=== PATIENT | female | born 1955 | race Caucasian/White ===

== ENCOUNTER 2018-05-19 12:44 | Inpatient (IN) | payer OTHER ==
[~2018-05-19] VITALS: Ht 167.6 cm; Wt 53.5 kg
[2018-05-19] MEDS ORDERED: ONDANSETRON HCL/PF 4 MG/2 ML VIAL IVP PRN (17:00)
[2018-05-19] MEDS ORDERED: ACETAMINOPHEN 650 MG/SUPP.RECT RC PRN (17:00)
[2018-05-19] MEDS ORDERED: VANCOMYCIN 1 GM in IV D5W 250 ML IV ONE (17:00)
[2018-05-19] MEDS ORDERED: IPRA3AMP23 IH (17:11)
[2018-05-19] MEDS ORDERED: LACT10SO PO (17:11)
[2018-05-19] MEDS ORDERED: ONDA4TAB5 PO (17:11)
[2018-05-19] MEDS ORDERED: MIDO5TAB PO (17:11)
[2018-05-19] MEDS ORDERED: BISA10SU8 RC (17:11)
[2018-05-19] MEDS ORDERED: METH750T3 PO (17:11)
[2018-05-19] MEDS ORDERED: ENOX40DI SQ (17:11)
[2018-05-19] MEDS ORDERED: LACT-215 PO (17:11)
[2018-05-19] MEDS ORDERED: ACET650S26 PO (17:11)
[2018-05-19] MEDS ORDERED: INSU100V28 SQ (17:11)
[2018-05-19] MEDS ORDERED: GLUC1KIT IM (17:11)
[2018-05-19] MEDS ORDERED: MEGE400O4 PO (17:11)
[2018-05-19] MEDS ORDERED: BLOO-668 IN (17:11)
[2018-05-19] MEDS ORDERED: METO-295 PO (17:11)
[2018-05-19] MEDS ORDERED: ASCO500T9 PO (17:11)
[2018-05-19] MEDS ORDERED: LEVO100T9 PO (17:11)
[2018-05-19] MEDS ORDERED: ZINC220C8 PO (17:11)
[2018-05-19] MEDS ORDERED: CHOL100044 PO (17:11)
[2018-05-19] MEDS ORDERED: HYDR1LIQ PO (17:11)
[2018-05-19] MEDS ORDERED: MAGN400O6 PO (17:11)
[2018-05-19 17:33] VITALS: BP 103/69
[2018-05-19 18:01] LABS: ALBUMIN 1.6 g/dL (3.4-5.0); BILIRUBIN,DIRECT 0.2 mg/dL (0.0-0.2); BILIRUBIN,TOTAL 0.6 mg/dL (0.2-1.0); CALCIUM, SERUM 8.3 mg/dL (8.5-10.1); CREATININE 0.5 mg/dL (0.6-1.3); POTASSIUM 3.7 mmol/L (3.5-5.1)
[2018-05-19] MEDS ORDERED: FEE PK DOSING 1 MIN EA MC ONE (18:15)
[2018-05-19] MEDS: PANTOPRAZOLE 40 MG VIAL IV SCH (18:53)
[2018-05-19] MEDS: IV NS 0.9% 1,000 ML IV PRN (18:58)
[2018-05-19] MEDS ORDERED: INSULIN REGULAR, HUMAN 100 UNIT/ML 3 ML VIAL SQ PRN (19:00)
[2018-05-19] MEDS ORDERED: DEXTROSE 50%-WATER 50 ML DISP.SYRIN IV PRN ×2 (19:00→20:00)
[2018-05-19] MEDS ORDERED: BISACODYL SUPP (10 MG) 10 MG/SUPP.RECT SUPP.RECT RC PRN (19:30)
[2018-05-19] MEDS: BLOOD SUGAR DIAGNOSTIC 1 EACH STRIP VI SCH ×2 (19:57→22:40)
[2018-05-19 20:00] VITALS: BP 119/67
[2018-05-19] MEDS: VANCOMYCIN 0.75 GM in IV D5W 250 ML IV SCH (20:48)
[2018-05-19] MEDS: PIPERACILLIN /TAZOBACTAM 3.375 G in IV D5W 100 ML IV SCH (22:40)
[2018-05-19] MEDS: HYDROMORPHONE 1 MG/1 ML DISP.SYRIN IV PRN (22:41)
[2018-05-20] VITALS: BP 96/56
[2018-05-20] MEDS ORDERED: BLOOD SUGAR DIAGNOSTIC 1 EACH STRIP IN SCH
[2018-05-20] MEDS: PIPERACILLIN /TAZOBACTAM 3.375 G in IV D5W 100 ML IV SCH ×4 (02:43→21:54)
[2018-05-20 02:47] LABS: ABG BASE EXCESS 1.9 mmol/L; ABG OXYGEN SATURATION 94.5 % (92.0-98.5); ABG PCO2 48.8 mmHg (35.0-45.0); ABG PO2 82.8 mmHg (75.0-100.0); COHb 2.1 % (0.5-1.5); MetHb 0.3 % (0.0-1.5); O2Hb 92.2 % (94.0-97.0); SITE, ABG Left Radial; VENT MODE, BG CA 35%
[2018-05-20 04:00] VITALS: BP 87/57
[2018-05-20] MEDS: IV NS 0.9% 1,000 ML IV PRN (05:44)
[2018-05-20] MEDS: HYDROMORPHONE 1 MG/1 ML DISP.SYRIN IV PRN ×3 (05:45→18:21)
[2018-05-20 06:15] LABS: HEMATOCRIT 29 % (33-45); HEMOGLOBIN 8.8 g/dL (11.5-14.8); LYMPHOCYTES # (AUTO) 0.6 /CMM (0.8-4.8); LYMPHOCYTES % (AUTO) 5.9 % (20.0-44.0); MEAN CORPUSCULAR HGB CONC 31 g/dl (31.0-36.0); MEAN CORPUSCULAR VOLUME 73 fL (82-100); MONOCYTES # (AUTO) 0.3 /CMM (0.1-1.30); MONOCYTES % (AUTO) 2.4 % (2.0-12.0); NEUTROPHILS % (AUTO) 91.7 % (43.0-81.0); PLATELET COUNT (AUTO) 396 /CMM (150-450); RED BLOOD CELL COUNT(AUTO) 3.94 MIL/uL (4.0-5.2)
[2018-05-20 06:32] LABS: ALBUMIN 1.5 g/dL (3.4-5.0); BILIRUBIN,TOTAL 0.6 mg/dL (0.2-1.0); CALCIUM, SERUM 8.3 mg/dL (8.5-10.1); CREATININE 0.6 mg/dL (0.6-1.3); POTASSIUM 4.1 mmol/L (3.5-5.1); TOTAL PROTEIN, SERUM 5.8 g/dL (6.4-8.2)
[2018-05-20 08:00] VITALS: BP 92/58
[2018-05-20] MEDS ORDERED: Z GUARD REMEDY 2 OZ OINT TP PRN (08:30)
[2018-05-20] MEDS: VANCOMYCIN 0.75 GM in IV D5W 250 ML IV SCH ×2 (08:50→20:54)
[2018-05-20] MEDS: BLOOD SUGAR DIAGNOSTIC 1 EACH STRIP VI SCH ×4 (08:51→22:48)
[2018-05-20] MEDS: PANTOPRAZOLE 40 MG VIAL IV SCH (08:52)
[2018-05-20 09:31] LABS: AMYLASE 16 U/L (25-115); LIPASE 31 U/L (73-393)
[2018-05-20] MEDS ORDERED: BISACODYL SUPP (10 MG) 10 MG/SUPP.RECT SUPP.RECT RC PRN (10:00)
[2018-05-20] MEDS: Z GUARD REMEDY 2 OZ OINT TP SCH (10:58)
[2018-05-20] MEDS: DAKINS QUARTER STRENGTH (0.125%) 480 ML BOTTLE TOP SCH (10:58)
[2018-05-20 12:00] VITALS: BP 111/57
[2018-05-20 12:20] LABS: THYROID STIMULATING HORMONE 4.781 uIU/mL (0.358-3.74)
[2018-05-20 12:25] LABS: MAGNESIUM 1.3 mg/dL (1.8-2.4); PHOSPHORUS 3.9 mg/dL (2.5-4.9)
[2018-05-20 16:00] VITALS: BP 93/63
[2018-05-20] MEDS ORDERED: MGSO4/D5W 100 ML IV SCH (16:30)
[2018-05-20] MEDS ORDERED: Magnesium 1GM/D5W 100ML PREMIX PIGGYBACK IV ONE (16:30)
[2018-05-20] MEDS: IV D5/ 0.9% NACL 1,000 ML IV PRN (16:35)
[2018-05-20 20:00] VITALS: BP 93/55
[2018-05-21] MEDS: HYDROMORPHONE 1 MG/1 ML DISP.SYRIN IV PRN ×5 (02:27→23:59)
[2018-05-21] MEDS: PIPERACILLIN /TAZOBACTAM 3.375 G in IV D5W 100 ML IV SCH ×4 (02:37→22:12)
[2018-05-21 06:26] LABS: EOSINOPHILS % (AUTO) 0.2 % (0.0-6.0); HEMATOCRIT 30 % (33-45); HEMOGLOBIN 9.1 g/dL (11.5-14.8); LYMPHOCYTES # (AUTO) 0.5 /CMM (0.8-4.8); LYMPHOCYTES % (AUTO) 4.6 % (20.0-44.0); MEAN CORPUSCULAR HGB CONC 31 g/dl (31.0-36.0); MEAN CORPUSCULAR VOLUME 73 fL (82-100); MONOCYTES # (AUTO) 0.2 /CMM (0.1-1.30); MONOCYTES % (AUTO) 1.9 % (2.0-12.0); NEUTROPHILS # (AUTO) 10.6 /CMM (1.8-8.9); NEUTROPHILS % (AUTO) 93.3 % (43.0-81.0); PLATELET COUNT (AUTO) 365 /CMM (150-450); RED BLOOD CELL COUNT(AUTO) 4.08 MIL/uL (4.0-5.2); WHITE BLOOD COUNT (AUTO) 11.3 K/uL (4.3-11.0)
[2018-05-21 06:42] LABS: BILIRUBIN,TOTAL 0.4 mg/dL (0.2-1.0); CALCIUM, SERUM 7.9 mg/dL (8.5-10.1); CREATININE 0.6 mg/dL (0.6-1.3); MAGNESIUM 1.4 mg/dL (1.8-2.4); PHOSPHORUS 2.8 mg/dL (2.5-4.9); POTASSIUM 2.9 mmol/L (3.5-5.1); TOTAL PROTEIN, SERUM 5.5 g/dL (6.4-8.2)
[2018-05-21 06:44] LABS: ALBUMIN 1.4 g/dL (3.4-5.0)
[2018-05-21] MEDS: IV D5/ 0.9% NACL 1,000 ML IV PRN ×2 (06:45→23:59)
[2018-05-21 08:00] VITALS: BP 136/69
[2018-05-21] MEDS: VANCOMYCIN 0.75 GM in IV D5W 250 ML IV SCH (08:36)
[2018-05-21] MEDS: PANTOPRAZOLE 40 MG VIAL IV SCH (08:37)
[2018-05-21] MEDS: BLOOD SUGAR DIAGNOSTIC 1 EACH STRIP VI SCH ×4 (08:37→22:28)
[2018-05-21] MEDS: Z GUARD REMEDY 2 OZ OINT TP SCH (08:38)
[2018-05-21] MEDS: DAKINS QUARTER STRENGTH (0.125%) 480 ML BOTTLE TOP SCH (08:50)
[2018-05-21 09:02] LABS: BAND % (MANUAL) 15 % (0.0-5.0); LYMPHOCYTES % (MANUAL) 2 % (16-48); MONOCYTES % (MANUAL) 1 % (0-11.0); NEUTROPHILS % (MANUAL) 82 (42-76)
[2018-05-21] MEDS: Magnesium 1GM/D5W 100ML PREMIX 100 ML IV SCH ×4 (10:25→13:19)
[2018-05-21] MEDS: POTASSIUM CL. PREMIX PERIPHER. 50 ML IV SCH ×6 (11:13→16:40)
[2018-05-21] MEDS: INSULIN REGULAR, HUMAN 100 UNIT/ML 3 ML VIAL SQ PRN (11:40)
[2018-05-21 12:17] VITALS: BP 125/67
[2018-05-21 12:26] VITALS: BP 125/67
[2018-05-21] MEDS: SOD FERRIC GLUC 125 MG in IV NS 0.9% 100 ML IV SCH (15:27)
[2018-05-21 16:00] VITALS: BP 112/62
[2018-05-21] MEDS: DOCUSATE SODIUM 100 MG CAPSULE PO SCH (16:41)
[2018-05-21] MEDS ORDERED: IV NS 0.9% 500 ML IV ONE (18:00)
[2018-05-21 20:00] VITALS: BP 104/68
[2018-05-21] MEDS: VANCOMYCIN 1 GM in IV D5W 250 ML IV SCH (20:14)
[2018-05-21 21:19] VITALS: BP 104/68
[2018-05-21] MEDS: POLYETHYLENE GLYCOL 3350 17 GM POWD.PACK PO SCH (22:00)
[2018-05-21] MEDS: *INSULIN REGULAR(HUMULIN R)HUM 100 UNIT/ML VIAL SQ PRN (22:29)
[2018-05-21 22:53] LABS: BILIRUBIN,DIRECT 0.2 mg/dL (0.0-0.2)
[2018-05-22 04:00] VITALS: BP 98/50
[2018-05-22] MEDS: PIPERACILLIN /TAZOBACTAM 3.375 G in IV D5W 100 ML IV SCH ×4 (04:00→21:31)
[2018-05-22] MEDS: ALBUTEROL FS 2.5 MG/0.5 ML VIAL.NEB NEB PRN ×3 (04:01→16:37)
[2018-05-22] MEDS: IPRATROPIUM NEB FS 0.5 MG/2.5 ML AMPUL.NEB NEB PRN ×3 (04:01→16:37)
[2018-05-22] MEDS: HYDROMORPHONE 1 MG/1 ML DISP.SYRIN IV PRN ×3 (05:15→17:54)
[2018-05-22 07:16] LABS: BASOPHILS % (AUTO) 0.1 % (0.0-2.0); EOSINOPHILS % (AUTO) 0.1 % (0.0-6.0); HEMATOCRIT 28 % (33-45); HEMOGLOBIN 8.8 g/dL (11.5-14.8); LYMPHOCYTES # (AUTO) 0.2 /CMM (0.8-4.8); LYMPHOCYTES % (AUTO) 2.8 % (20.0-44.0); MEAN CORPUSCULAR HGB CONC 32 g/dl (31.0-36.0); MEAN CORPUSCULAR VOLUME 72 fL (82-100); MONOCYTES # (AUTO) 0.1 /CMM (0.1-1.30); MONOCYTES % (AUTO) 1.5 % (2.0-12.0); NEUTROPHILS # (AUTO) 8.4 /CMM (1.8-8.9); NEUTROPHILS % (AUTO) 95.5 % (43.0-81.0); PLATELET COUNT (AUTO) 332 /CMM (150-450); RED BLOOD CELL COUNT(AUTO) 3.87 MIL/uL (4.0-5.2); WHITE BLOOD COUNT (AUTO) 8.8 K/uL (4.3-11.0)
[2018-05-22 07:23] LABS: CALCIUM, SERUM 7.6 mg/dL (8.5-10.1); CREATININE 0.5 mg/dL (0.6-1.3); MAGNESIUM 1.8 mg/dL (1.8-2.4)
[2018-05-22 07:34] LABS: POTASSIUM 2.7 mmol/L (3.5-5.1)
[2018-05-22] MEDS: BLOOD SUGAR DIAGNOSTIC 1 EACH STRIP VI SCH ×4 (07:52→22:47)
[2018-05-22] MEDS: INSULIN REGULAR, HUMAN 100 UNIT/ML 3 ML VIAL SQ PRN ×3 (07:53→17:20)
[2018-05-22 08:00] VITALS: BP 103/55
[2018-05-22] MEDS: PANTOPRAZOLE 40 MG VIAL IV SCH (08:13)
[2018-05-22] MEDS: VANCOMYCIN 1 GM in IV D5W 250 ML IV SCH ×2 (08:13→20:00)
[2018-05-22] MEDS: DAKINS QUARTER STRENGTH (0.125%) 480 ML BOTTLE TOP SCH (08:14)
[2018-05-22] MEDS: Z GUARD REMEDY 2 OZ OINT TP SCH (08:15)
[2018-05-22 08:19] VITALS: BP 103/55
[2018-05-22] MEDS: DOCUSATE SODIUM 100 MG CAPSULE PO SCH ×2 (10:19→16:35)
[2018-05-22] MEDS: POTASSIUM CL. PREMIX PERIPHER. 50 ML IV SCH ×10 (10:46→21:30)
[2018-05-22] MEDS: methylPREDNISolone SOD SUCC 125 MG/2ML VIAL IV SCH ×2 (11:00→16:35)
[2018-05-22] MEDS ORDERED: JEVITY 1.2 CAL 1,000 ML BOTTLE GT PRN (15:30)
[2018-05-22 16:00] VITALS: BP_SYST 149; BP_SYST 99; BP_DIAS 63; BP_DIAS 75
[2018-05-22] MEDS: SOD FERRIC GLUC 125 MG in IV NS 0.9% 100 ML IV SCH (16:17)
[2018-05-22] MEDS: GLUCERNA 1.2 1,000 ML BOTTLE NG SCH (18:35)
[2018-05-22] MEDS: IV D5/ 0.9% NACL 1,000 ML IV PRN (19:36)
[2018-05-22 20:00] VITALS: BP 111/73
[2018-05-22] MEDS: LORAZEPAM 1 MG TABLET PO PRN (20:54)
[2018-05-22] MEDS: POLYETHYLENE GLYCOL 3350 17 GM POWD.PACK PO SCH (21:32)
[2018-05-23] VITALS (8 sets, daily range): BP systolic 87–107; BP diastolic 54–70
[2018-05-23] MEDS: HYDROMORPHONE 1 MG/1 ML DISP.SYRIN IV PRN ×4 (00:05→20:51)
[2018-05-23] MEDS: VANCOMYCIN 0.75 GM in IV D5W 250 ML IV SCH ×3 (00:05→23:47)
[2018-05-23] MEDS: PIPERACILLIN /TAZOBACTAM 3.375 G in IV D5W 100 ML IV SCH ×4 (03:26→20:46)
[2018-05-23 06:33] LABS: HEMATOCRIT 27 % (33-45); HEMOGLOBIN 8.5 g/dL (11.5-14.8); LYMPHOCYTES # (AUTO) 0.6 /CMM (0.8-4.8); LYMPHOCYTES % (AUTO) 4.9 % (20.0-44.0); MEAN CORPUSCULAR HGB CONC 32 g/dl (31.0-36.0); MEAN CORPUSCULAR VOLUME 71 fL (82-100); MONOCYTES # (AUTO) 0.2 /CMM (0.1-1.30); MONOCYTES % (AUTO) 1.4 % (2.0-12.0); NEUTROPHILS # (AUTO) 11.6 /CMM (1.8-8.9); NEUTROPHILS % (AUTO) 93.7 % (43.0-81.0); PLATELET COUNT (AUTO) 408 /CMM (150-450); RED BLOOD CELL COUNT(AUTO) 3.76 MIL/uL (4.0-5.2); WHITE BLOOD COUNT (AUTO) 12.4 K/uL (4.3-11.0)
[2018-05-23 06:46] LABS: BILIRUBIN,TOTAL 0.4 mg/dL (0.2-1.0); CALCIUM, SERUM 8.5 mg/dL (8.5-10.1); CREATININE 0.6 mg/dL (0.6-1.3); MAGNESIUM 1.7 mg/dL (1.8-2.4); PHOSPHORUS 2.1 mg/dL (2.5-4.9); POTASSIUM 3.7 mmol/L (3.5-5.1); TOTAL PROTEIN, SERUM 5.6 g/dL (6.4-8.2)
[2018-05-23 07:03] LABS: ALBUMIN 1.4 g/dL (3.4-5.0)
[2018-05-23] MEDS: PANTOPRAZOLE 40 MG VIAL IV SCH (08:04)
[2018-05-23] MEDS: methylPREDNISolone SOD SUCC 125 MG/2ML VIAL IV SCH ×2 (08:04→16:30)
[2018-05-23] MEDS: BLOOD SUGAR DIAGNOSTIC 1 EACH STRIP VI SCH ×4 (08:05→22:12)
[2018-05-23] MEDS: DOCUSATE SODIUM 100 MG CAPSULE PO SCH (08:05)
[2018-05-23] MEDS: DAKINS QUARTER STRENGTH (0.125%) 480 ML BOTTLE TOP SCH (08:06)
[2018-05-23] MEDS: Z GUARD REMEDY 2 OZ OINT TP SCH (08:06)
[2018-05-23 09:32] LABS: ABG BASE EXCESS 9.4 mmol/L; ABG OXYGEN SATURATION 93.8 % (92.0-98.5); ABG PCO2 44.3 mmHg (35.0-45.0); ABG PH 7.497 (7.350-7.450); ABG PO2 73.3 mmHg (75.0-100.0); AaDO2 305.8 mmHg; COHb 2.2 % (0.5-1.5); MetHb 0.3 % (0.0-1.5); O2Hb 91.5 % (94.0-97.0); SITE, ABG Right Brachial; VENT MODE, BG COOL AEROSOL 60%
[2018-05-23] MEDS: LORAZEPAM 1 MG TABLET PO PRN ×2 (10:05→23:45)
[2018-05-23 13:57] LABS: ABG PCO2 46.2 mmHg (35.0-45.0); ABG PH 7.478 (7.350-7.450); ABG PO2 101.1 mmHg (75.0-100.0); AaDO2 167.2 mmHg; MetHb 0.1 % (0.0-1.5); PEEP,BG 5 cm H2O; SITE, ABG Right Brachial; VT, ABG 450 mL
[2018-05-23] MEDS: Magnesium 1GM/D5W 100ML PREMIX 100 ML IV SCH ×2 (14:02→15:27)
[2018-05-23] MEDS ORDERED: NEUTRA PHOS 1 POWD.PACKET NG ONE (15:30)
[2018-05-23] MEDS: SOD FERRIC GLUC 125 MG in IV NS 0.9% 100 ML IV SCH (16:29)
[2018-05-23] MEDS: LACTOBACILLUS RHAMNOSUS GG 1 EACH CAP.SPRINK PO SCH (16:35)
[2018-05-23] MEDS: INSULIN REGULAR, HUMAN 100 UNIT/ML 3 ML VIAL SQ PRN (16:50)
[2018-05-23] MEDS: DOCUSATE SODIUM LIQ 100 MG/10 ML UDC GT SCH (16:52)
[2018-05-23] MEDS: GLUCERNA 1.2 1,000 ML BOTTLE NG SCH (17:17)
[2018-05-23] MEDS: POLYETHYLENE GLYCOL 3350 17 GM POWD.PACK PO SCH (21:22)
[2018-05-23] MEDS: *INSULIN REGULAR(HUMULIN R)HUM 100 UNIT/ML VIAL SQ PRN (22:16)
[2018-05-23] MEDS: HYDROCODONE/APAP 5/325MG 1 EACH TABLET PO PRN (23:47)
[2018-05-24] VITALS: BP 124/72
[2018-05-24] MEDS: PIPERACILLIN /TAZOBACTAM 3.375 G in IV D5W 100 ML IV SCH ×3 (03:03→16:15)
[2018-05-24] MEDS: HYDROMORPHONE 1 MG/1 ML DISP.SYRIN IV PRN ×3 (03:04→18:32)
[2018-05-24 04:00] VITALS: BP 93/57
[2018-05-24] MEDS: HYDROCODONE/APAP 5/325MG 1 EACH TABLET PO PRN ×3 (05:32→21:44)
[2018-05-24 06:42] LABS: BASOPHILS % (AUTO) 0.1 % (0.0-2.0); EOSINOPHILS % (AUTO) 0.2 % (0.0-6.0); HEMATOCRIT 22 % (33-45); HEMOGLOBIN 7.1 g/dL (11.5-14.8); LYMPHOCYTES # (AUTO) 0.5 /CMM (0.8-4.8); LYMPHOCYTES % (AUTO) 5.5 % (20.0-44.0); MEAN CORPUSCULAR HGB CONC 32 g/dl (31.0-36.0); MEAN CORPUSCULAR VOLUME 70 fL (82-100); MONOCYTES # (AUTO) 0.1 /CMM (0.1-1.30); NEUTROPHILS # (AUTO) 8.3 /CMM (1.8-8.9); NEUTROPHILS % (AUTO) 93.2 % (43.0-81.0); PLATELET COUNT (AUTO) 303 /CMM (150-450); RED BLOOD CELL COUNT(AUTO) 3.18 MIL/uL (4.0-5.2); WHITE BLOOD COUNT (AUTO) 8.9 K/uL (4.3-11.0)
[2018-05-24 06:46] LABS: CALCIUM, SERUM 8.4 mg/dL (8.5-10.1); CREATININE 0.6 mg/dL (0.6-1.3); POTASSIUM 3.3 mmol/L (3.5-5.1)
[2018-05-24] MEDS: BLOOD SUGAR DIAGNOSTIC 1 EACH STRIP VI SCH ×4 (07:50→21:17)
[2018-05-24 08:00] VITALS: BP 115/75
[2018-05-24] MEDS: methylPREDNISolone SOD SUCC 125 MG/2ML VIAL IV SCH ×2 (08:07→16:45)
[2018-05-24] MEDS: FUROSEMIDE 40 MG/4 ML VIAL IV SCH (08:07)
[2018-05-24] MEDS: LACTOBACILLUS RHAMNOSUS GG 1 EACH CAP.SPRINK PO SCH ×2 (08:07→16:45)
[2018-05-24] MEDS: PANTOPRAZOLE 40 MG VIAL IV SCH (08:07)
[2018-05-24] MEDS: Z GUARD REMEDY 2 OZ OINT TP SCH (08:08)
[2018-05-24] MEDS: DAKINS QUARTER STRENGTH (0.125%) 480 ML BOTTLE TOP SCH (08:08)
[2018-05-24] MEDS: DOCUSATE SODIUM LIQ 100 MG/10 ML UDC GT SCH ×2 (08:08→16:45)
[2018-05-24 08:51] LABS: ABG BASE EXCESS 8.7 mmol/L; ABG OXYGEN SATURATION 97.7 % (92.0-98.5); ABG PCO2 39.7 mmHg (35.0-45.0); ABG PH 7.527 (7.350-7.450); ABG PO2 121.5 mmHg (75.0-100.0); AaDO2 154.2 mmHg; COHb 1.6 % (0.5-1.5); MetHb 0.3 % (0.0-1.5); O2Hb 95.8 % (94.0-97.0); SITE, ABG Right Radial; VENT MODE, BG AC 12 450 +5 45%
[2018-05-24] MEDS ORDERED: POTASSIUM CHLORIDE 20 MEQ POWDER PACKET NG SCH (09:00)
[2018-05-24] MEDS ORDERED: ACETAMINOPHEN 650 MG/20 ML UDC- SA PATIENTS-PAIN ONLY GT PRN (10:00)
[2018-05-24] MEDS ORDERED: ACETAMINOPHEN 650 MG/20.3 ML UDC GT PRN (10:00)
[2018-05-24 12:00] VITALS: BP 93/66
[2018-05-24] MEDS: VANCOMYCIN 0.75 GM in IV D5W 250 ML IV SCH (12:41)
[2018-05-24] MEDS: LORAZEPAM 1 MG TABLET PO PRN (14:19)
[2018-05-24] MEDS: SOD FERRIC GLUC 125 MG in IV NS 0.9% 100 ML IV SCH (14:33)
[2018-05-24 16:00] VITALS: BP 102/67
[2018-05-24 16:40] LABS: HEMOGLOBIN 9.1 g/dL (11.5-14.8)
[2018-05-24] MEDS: GLUCERNA 1.2 1,000 ML BOTTLE NG SCH (16:45)
[2018-05-24 20:00] VITALS: BP 114/76
[2018-05-24] MEDS: FLUCONAZOLE (100 MG) 100 MG TABLET PO SCH (20:24)
[2018-05-24] MEDS: CEFEPIME 1 GM in IV D5W 50 ML IV SCH (20:24)
[2018-05-24] MEDS: POLYETHYLENE GLYCOL 3350 17 GM POWD.PACK PO SCH (21:17)
[2018-05-25] VITALS (7 sets, daily range): BP systolic 100–122; BP diastolic 69–75
[2018-05-25] MEDS: HYDROMORPHONE 1 MG/1 ML DISP.SYRIN IV PRN ×4 (03:19→19:58)
[2018-05-25 06:46] LABS: CALCIUM, SERUM 8.5 mg/dL (8.5-10.1); CREATININE 0.6 mg/dL (0.6-1.3); POTASSIUM 3.6 mmol/L (3.5-5.1)
[2018-05-25] MEDS: BLOOD SUGAR DIAGNOSTIC 1 EACH STRIP VI SCH ×2 (08:08→11:32)
[2018-05-25] MEDS: LACTOBACILLUS RHAMNOSUS GG 1 EACH CAP.SPRINK PO SCH ×2 (08:27→15:53)
[2018-05-25] MEDS: LORAZEPAM 1 MG TABLET PO PRN ×2 (08:27→18:32)
[2018-05-25] MEDS: DOCUSATE SODIUM LIQ 100 MG/10 ML UDC GT SCH ×2 (08:27→15:53)
[2018-05-25] MEDS: CEFEPIME 1 GM in IV D5W 50 ML IV SCH ×2 (08:28→19:58)
[2018-05-25] MEDS: PANTOPRAZOLE 40 MG VIAL IV SCH (08:28)
[2018-05-25] MEDS: methylPREDNISolone SOD SUCC 125 MG/2ML VIAL IV SCH ×2 (08:28→15:53)
[2018-05-25] MEDS: FUROSEMIDE 40 MG/4 ML VIAL IV SCH (08:28)
[2018-05-25] MEDS: Z GUARD REMEDY 2 OZ OINT TP SCH (08:28)
[2018-05-25] MEDS: DAKINS QUARTER STRENGTH (0.125%) 480 ML BOTTLE TOP SCH (08:28)
[2018-05-25] MEDS: HYDROCODONE/APAP 5/325MG 1 EACH TABLET PO PRN ×2 (08:30→15:21)
[2018-05-25 11:57] LABS: BASOPHILS % (AUTO) 0.1 % (0.0-2.0); EOSINOPHILS % (AUTO) 0.1 % (0.0-6.0); HEMATOCRIT 27 % (33-45); HEMOGLOBIN 8.3 g/dL (11.5-14.8); LYMPHOCYTES # (AUTO) 0.6 /CMM (0.8-4.8); LYMPHOCYTES % (AUTO) 4.8 % (20.0-44.0); MEAN CORPUSCULAR HGB CONC 31 g/dl (31.0-36.0); MEAN CORPUSCULAR VOLUME 72 fL (82-100); MONOCYTES # (AUTO) 0.1 /CMM (0.1-1.30); MONOCYTES % (AUTO) 1.1 % (2.0-12.0); NEUTROPHILS # (AUTO) 10.8 /CMM (1.8-8.9); NEUTROPHILS % (AUTO) 93.9 % (43.0-81.0); PLATELET COUNT (AUTO) 326 /CMM (150-450); RED BLOOD CELL COUNT(AUTO) 3.76 MIL/uL (4.0-5.2); WHITE BLOOD COUNT (AUTO) 11.5 K/uL (4.3-11.0)
[2018-05-25] MEDS ORDERED: VANCOMYCIN 0.75 GM in IV D5W 250 ML IV SCH (12:00)
[2018-05-25] MEDS: SOD FERRIC GLUC 125 MG in IV NS 0.9% 100 ML IV SCH (13:53)
[2018-05-25] MEDS ORDERED: DEXTROSE 50%-WATER 50 ML DISP.SYRIN IV PRN (16:00)
[2018-05-25] MEDS: BLOOD SUGAR DIAGNOSTIC 1 EACH STRIP IN SCH (17:55)
[2018-05-25] MEDS ORDERED: BLOOD SUGAR DIAGNOSTIC 1 EACH STRIP VI SCH (18:00)
[2018-05-25] MEDS: INSULIN REGULAR, HUMAN 100 UNIT/ML 3 ML VIAL SQ PRN (18:33)
[2018-05-25] MEDS: FLUCONAZOLE (100 MG) 100 MG TABLET PO SCH (20:33)
[2018-05-25] MEDS: POLYETHYLENE GLYCOL 3350 17 GM POWD.PACK PO SCH (21:07)
[2018-05-26] VITALS: BP 95/62
[2018-05-26] MEDS: INSULIN REGULAR, HUMAN 100 UNIT/ML 3 ML VIAL SQ PRN ×4 (00:04→23:53)
[2018-05-26] MEDS: BLOOD SUGAR DIAGNOSTIC 1 EACH STRIP IN SCH ×5 (00:04→23:52)
[2018-05-26] MEDS: GLUCERNA 1.2 1,000 ML BOTTLE NG SCH (01:56)
[2018-05-26] MEDS: HYDROMORPHONE 1 MG/1 ML DISP.SYRIN IV PRN ×5 (03:19→16:31)
[2018-05-26 04:00] VITALS: BP 133/76
[2018-05-26 07:33] LABS: CALCIUM, SERUM 8.5 mg/dL (8.5-10.1); CREATININE 0.5 mg/dL (0.6-1.3)
[2018-05-26 08:00] VITALS: BP_SYST 100; BP_SYST 117; BP_DIAS 54; BP_DIAS 61
[2018-05-26] MEDS: CEFEPIME 1 GM in IV D5W 50 ML IV SCH (08:19)
[2018-05-26] MEDS: FUROSEMIDE 40 MG/4 ML VIAL IV SCH (09:00)
[2018-05-26] MEDS: LACTOBACILLUS RHAMNOSUS GG 1 EACH CAP.SPRINK PO SCH ×2 (09:01→17:43)
[2018-05-26] MEDS: PANTOPRAZOLE 40 MG VIAL IV SCH (09:01)
[2018-05-26] MEDS: DOCUSATE SODIUM LIQ 100 MG/10 ML UDC GT SCH ×2 (09:02→17:43)
[2018-05-26] MEDS: methylPREDNISolone SOD SUCC 125 MG/2ML VIAL IV SCH ×2 (09:02→17:43)
[2018-05-26] MEDS: DAKINS QUARTER STRENGTH (0.125%) 480 ML BOTTLE TOP SCH (09:11)
[2018-05-26] MEDS: Z GUARD REMEDY 2 OZ OINT TP SCH (09:11)
[2018-05-26 12:00] VITALS: BP 101/55
[2018-05-26] MEDS ORDERED: VANCOMYCIN 1 GM in IV D5W 250 ML IV SCH (13:00)
[2018-05-26] MEDS: POTASSIUM CL. PREMIX PERIPHER. 50 ML IV SCH ×6 (13:12→20:29)
[2018-05-26] MEDS: LORAZEPAM 1 MG TABLET PO PRN (13:44)
[2018-05-26 16:00] VITALS: BP 104/67
[2018-05-26] MEDS ORDERED: IV NS 0.9% 500 ML IV ONE (16:00)
[2018-05-26] MEDS: ALBUTEROL FS 2.5 MG/0.5 ML VIAL.NEB NEB PRN (16:18)
[2018-05-26] MEDS: IPRATROPIUM NEB FS 0.5 MG/2.5 ML AMPUL.NEB NEB PRN (16:18)
[2018-05-26 20:00] VITALS: BP 100/69
[2018-05-26] MEDS: CEFEPIME 2 GM in IV D5W 100 ML IV SCH (20:09)
[2018-05-26] MEDS: POLYETHYLENE GLYCOL 3350 17 GM POWD.PACK PO SCH (21:20)
[2018-05-26] MEDS: FLUCONAZOLE (100 MG) 100 MG TABLET PO SCH (21:20)
[2018-05-26] MEDS: METOCLOPRAMIDE HCL 10 MG/2 ML VIAL IV SCH (23:45)
[2018-05-27] VITALS: BP_SYST 125; BP_SYST 97; BP_DIAS 54; BP_DIAS 57
[2018-05-27] MEDS: HYDROMORPHONE 1 MG/1 ML DISP.SYRIN IV PRN (00:17)
[2018-05-27 04:00] VITALS: BP 100/57
[2018-05-27] MEDS: BLOOD SUGAR DIAGNOSTIC 1 EACH STRIP IN SCH (05:27)
[2018-05-27] MEDS: METOCLOPRAMIDE HCL 10 MG/2 ML VIAL IV SCH (05:29)
[2018-05-27 06:27] LABS: BASOPHILS % (AUTO) 0.1 % (0.0-2.0); EOSINOPHILS % (AUTO) 0.6 % (0.0-6.0); HEMATOCRIT 29 % (33-45); HEMOGLOBIN 9.1 g/dL (11.5-14.8); LYMPHOCYTES # (AUTO) 0.8 /CMM (0.8-4.8); LYMPHOCYTES % (AUTO) 4.4 % (20.0-44.0); MEAN CORPUSCULAR HGB CONC 31 g/dl (31.0-36.0); MEAN CORPUSCULAR VOLUME 73 fL (82-100); MONOCYTES # (AUTO) 0.3 /CMM (0.1-1.30); MONOCYTES % (AUTO) 1.5 % (2.0-12.0); NEUTROPHILS % (AUTO) 93.4 % (43.0-81.0); PLATELET COUNT (AUTO) 403 /CMM (150-450); RED BLOOD CELL COUNT(AUTO) 4.03 MIL/uL (4.0-5.2); WHITE BLOOD COUNT (AUTO) 19.3 K/uL (4.3-11.0)
[2018-05-27 07:14] LABS: ABG BASE EXCESS 5.2 mmol/L; ABG OXYGEN SATURATION 98.4 % (92.0-98.5); ABG PCO2 33.3 mmHg (35.0-45.0); ABG PO2 164.4 mmHg (75.0-100.0); AaDO2 118.6 mmHg; COHb 0.9 % (0.5-1.5); MetHb 0.3 % (0.0-1.5); O2Hb 97.2 % (94.0-97.0); SITE, ABG Left Brachial; VENT MODE, BG AC 12 400 +5 45%
[2018-05-27 08:00] VITALS: BP 124/90
[2018-05-27] MEDS: CEFEPIME 2 GM in IV D5W 100 ML IV SCH (08:00)
[2018-05-27 08:09] LABS: NEUTROPHILS % (MANUAL) 80 (42-76)
[2018-05-27 08:10] LABS: BAND % (MANUAL) 12 % (0.0-5.0); LYMPHOCYTES % (MANUAL) 6 % (16-48); MONOCYTES % (MANUAL) 2 % (0-11.0)
[2018-05-27] MEDS: FUROSEMIDE 40 MG/4 ML VIAL IV SCH (09:00)
[2018-05-27] MEDS: DAKINS QUARTER STRENGTH (0.125%) 480 ML BOTTLE TOP SCH (09:00)
[2018-05-27] MEDS: methylPREDNISolone SOD SUCC 125 MG/2ML VIAL IV SCH (09:00)
[2018-05-27] MEDS: LACTOBACILLUS RHAMNOSUS GG 1 EACH CAP.SPRINK PO SCH (09:00)
[2018-05-27] MEDS: DOCUSATE SODIUM LIQ 100 MG/10 ML UDC GT SCH (09:00)
[2018-05-27] MEDS: PANTOPRAZOLE 40 MG VIAL IV SCH (09:00)
[2018-05-27] MEDS: Z GUARD REMEDY 2 OZ OINT TP SCH (09:00)
== END 2018-05-27 08:58 | disposition expired | DRG 710 ==
LOC: TELE-TD 16:42 → MEDSG1 05-21 11:43 → TELE1 05-23 14:32
PROVIDERS: ADMIT Internal Medicine; ATTEND Nurse Practitioner Acute Care
PROC: 5A1945Z Respiratory Ventilation, 24-96 Consecutive Hours (ICD-10-PCS; principal; 2018-05-23)
PROC: 0DH63UZ Insertion of Feeding Device into Stomach, Percutaneous Approach (ICD-10-PCS; principal; 2018-05-23)
PROC: 0QB10ZZ Excision of Sacrum, Open Approach (ICD-10-PCS; principal; 2018-05-23)
DX: A41.9 Sepsis, unspecified organism (principal); I21.A1 Myocardial infarction type 2; J69.0 Pneumonitis due to inhalation of food and vomit; L89.154 Pressure ulcer of sacral region, stage 4; J96.21 Acute and chronic respiratory failure with hypoxia; E43 Unspecified severe protein-calorie malnutrition; J15.6 Pneumonia due to other Gram-negative bacteria; R53.2 Functional quadriplegia; R64 Cachexia; E87.2 Acidosis; R65.20 Severe sepsis without septic shock; D68.59 Other primary thrombophilia; E83.42 Hypomagnesemia; E86.0 Dehydration; E87.0 Hyperosmolality and hypernatremia; M86.9 Osteomyelitis, unspecified; E87.6 Hypokalemia; E03.9 Hypothyroidism, unspecified; G89.29 Other chronic pain; I25.2 Old myocardial infarction; E86.1 Hypovolemia; Z93.0 Tracheostomy status; M34.9 Systemic sclerosis, unspecified; E88.09 Other disorders of plasma-protein metabolism, not elsewhere classified; M62.50 Muscle wasting and atrophy, not elsewhere classified, unspecified site; J96.22 Acute and chronic respiratory failure with hypercapnia; D50.9 Iron deficiency anemia, unspecified; K92.2 Gastrointestinal hemorrhage, unspecified; K59.00 Constipation, unspecified; Z68.1 Body mass index [BMI] 19.9 or less, adult; R13.10 Dysphagia, unspecified; R62.7 Adult failure to thrive; R73.9 Hyperglycemia, unspecified; E11.69 Type 2 diabetes mellitus with other specified complication; T38.0X5A Adverse effect of glucocorticoids and synthetic analogues, initial encounter; Y92.89 Other specified places as the place of occurrence of the external cause; D72.828 Other elevated white blood cell count
CPT/HCPCS: 31720; 36415; 36600; 71045-TC; 71250-TC; 74018; 80048-TC; 80053-TC; 80061-TC; 80076-TC; 80202-TC; 82150-TC; 82248-TC; 82533; 82728-TC; 82803-TC; 82962-TC; 83540-TC; 83605-TC; 83690-TC; 83735-TC; 84100-TC; 84439-TC; 84443-TC; 84484-TC; 85025-TC; 85027-TC; 87040-TC; 87070-TC; 87081-TC; 93307-TC; 94002-TC; 94003-TC; 94640-TC; 94760-TC; 94762-TC; 99082-TC; A4217; A6253; A6402; A6403; A6407; C9113; G0378; J0692; J1170; J1815; J1940; J2405; J2543; J2704; J2765; J2916; J2930; J3370; J3475; J3480; J7030; J7040; J7042; J7050; J7060